=== PATIENT | male | born 1975 | race Caucasian/White ===

== ENCOUNTER 2019-09-27 13:37 | Inpatient (IN) | payer OTHER ==
[2019-09-27 16:56] VITALS: BMI 22.0
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
[2019-09-27] MEDS ORDERED: MAG HYDROX/AL HYDROX/SIMETH 30 ML UNIT-DOSE CUP PO PRN (19:36)
[2019-09-27] MEDS ORDERED: ACETAMINOPHEN 325 MG TABLET (FP) PO PRN (19:36)
[2019-09-27] MEDS ORDERED: MAGNESIUM CITRATE 300 ML BOTTLE PO PRN (19:36)
[2019-09-27] MEDS ORDERED: METHADONE HCL 10 MG TABLET (FOR DETOX USE ONLY) PO ONE (19:36)
[2019-09-27] MEDS ORDERED: NICOTINE POLACRILEX 2 MG GUM BUC PRN (19:36)
[2019-09-27] MEDS ORDERED: MENTHOL/PHENOL 1 EACH UD MM PRN (19:36)
[2019-09-27] MEDS ORDERED: BISMUTH SUBSALICYLATE 524 MG/30 ML UD PO PRN (19:36)
[2019-09-27] MEDS ORDERED: MAGNESIUM HYDROX 2400MG/30ML ORAL SUSPENSION 30 ML CUP PO PRN (19:36)
[2019-09-27] MEDS: MELATONIN 5 MG TABLETS PO SCH (22:23)
[2019-09-27] MEDS: THIAMINE HCL 100 MG TABLET (FP) PO SCH (22:23)
[2019-09-27] MEDS: cloNIDine HCL 0.1 MG TABLET PO PRN (22:23)
[2019-09-28] MEDS ORDERED: METHADONE HCL 5 MG TABLET (FOR DETOX USE ONLY) ONE (09:25)
[2019-09-28] MEDS ORDERED: METHADONE HCL 10 MG TABLET (FOR DETOX USE ONLY) ONE (09:26)
[2019-09-28] MEDS ORDERED: METHADONE (DETOX) 20 MG, METHADONE (DETOX) 5 MG PO ONE (10:00)
[2019-09-28] MEDS: NICOTINE 14 MG/24 HOURS TOPICAL PATCH TD SCH (10:09)
[2019-09-28] MEDS: PRENATAL VITAMINS W/ FOLIC ACID TABLET (FP) PO SCH (10:09)
--- NOTE | 2019-09-28 11:38 | PN ---
BHS COWS - Scale Resting Pulse: 0= [place] 80 or Below Sweatin= No chills or Flushing Restless Observation: 1= Difficult to Sit Still Pupil Size: 1= Pupils >than Normal Bone or Joint Aches: 2= Severe Diffuse Aches Runny Nose/ Eye Tearin= Runny Nose/Eyes GI Upset > 30mins: 2= Nausea/Diarrhea Tremor Observation of Outstretched Hands: 2= Slight Tremor Visible Yawning Observation: 1= 1-2x During Session Anxiety or Irritability: 2=Irritable/Anxious Goose Flesh Skin: 0=Smooth Skin COWS Score: 13 [facility] Progress Note (SOAP) Subjective: alert,irritable,anxious,interrupted sleep,tremor,pain in the body and back,nausea Objective: 09/28/19 11:36 Vital Signs Temperature 97.1 F L 09/28/19 05:08 Pulse Rate 53 L 09/28/19 05:08 Respiratory Rate 20 09/28/19 05:08 Blood Pressure 137/77 09/28/19 05:08 O2 Sat by Pulse Oximetry (%) 100 09/28/19 05:08 09/28/19 11:37 labs pending Assessment: 09/28/19 11:37 withdrawal symptom Plan: continue detox methadone regimen,valium 10 mgs po q 4 hrs prn for severe withdrawal
[2019-09-28 11:54] LABS: HEMATOCRIT 41.8 % (35.4-49); HEMOGLOBIN 13.5 GM/dL (11.7-16.9); MCH 28.1 pg (25.7-33.7); MCHC 32.3 g/dl (32.0-35.9); MEAN PLT VOLUME 9.7 fl (7.5-11.1); PLATELET COUNT 273 K/MM3 (134-434); RBC 4.81 M/mm3 (4.00-5.60); WHITE BLOOD COUNT 8.4 K/mm3 (4.0-10.0)
[2019-09-28 12:10] LABS: ALBUMIN 3.8 g/dl (3.4-5.0); BILIRUBIN,TOTAL 0.8 mg/dL (0.2-1); BLOOD UREA NITROGEN 8.1 mg/dL (7-18); CALCIUM 9.4 mg/dL (8.5-10.1); CREATININE 0.9 mg/dL (0.55-1.3)
--- NOTE | 2019-09-28 14:56 | EKG ---
Test Reason : Blood Pressure : / mmHG Vent. Rate : 045 BPM Atrial Rate : 045 BPM P-R Int : 110 ms QRS Dur : 090 ms QT Int : 454 ms P-R-T Axes : 072 049 052 degrees QTc Int : 392 ms SINUS BRADYCARDIA WITH SHORT [place] MODERATE VOLTAGE CRITERIA FOR LVH, MAY BE NORMAL VARIANT BORDERLINE ECG NO PREVIOUS ECGS AVAILABLE Confirmed by KELLI RAMESH MD ([id number]) on 09/28/2019 2:56:06 PM Referred By: Confirmed By:KELLI RAMESH MD
[2019-09-28] MEDS: cloNIDine HCL 0.1 MG TABLET PO PRN (18:44)
[2019-09-28] MEDS: diazePAM 5 MG TABLET PO PRN (22:28)
[2019-09-28] MEDS: THIAMINE HCL 100 MG TABLET (FP) PO SCH (22:28)
[2019-09-28] MEDS: MELATONIN 5 MG TABLETS PO SCH (22:29)
[2019-09-29] MEDS ORDERED: METHADONE HCL 10 MG TABLET (FOR DETOX USE ONLY) PO ONE (10:00)
[2019-09-29] MEDS: PRENATAL VITAMINS W/ FOLIC ACID TABLET (FP) PO SCH (11:09)
[2019-09-29] MEDS: NICOTINE 14 MG/24 HOURS TOPICAL PATCH TD SCH (11:09)
--- NOTE | 2019-09-29 11:53 | PN ---
S COWS - Scale Resting Pulse: 0= [place] 80 or Below Sweatin= No chills or Flushing Restless Observation: 0= Sits Still Pupil Size: 1= Pupils >than Normal Bone or Joint Aches: 2= Severe Diffuse Aches Runny Nose/ Eye Tearin= Nasal Congestion GI Upset > 30mins: 2= Nausea/Diarrhea Tremor Observation of Outstretched Hands: 2= Slight Tremor Visible Yawning Observation: 1= 1-2x During Session Anxiety or Irritability: 2=Irritable/Anxious Goose Flesh Skin: 0=Smooth Skin COWS Score: 11 S Progress Note (SOAP) Subjective: alert,irritable,anxious,interrupted sleep,tremor,pain in the body,back,nausea Objective: 09/29/19 11:51 Vital Signs Temperature 97.9 F 09/29/19 08:39 Pulse Rate 65 09/29/19 08:39 Respiratory Rate 18 09/29/19 08:39 Blood Pressure 135/78 09/29/19 08:39 O2 Sat by Pulse Oximetry (%) 100 09/29/19 08:39 09/29/19 11:52 Vital Signs Temperature 97.9 F 09/29/19 08:39 Pulse Rate 65 09/29/19 08:39 Respiratory Rate 18 09/29/19 08:39 Blood Pressure 135/78 09/29/19 08:39 O2 Sat by Pulse Oximetry (%) 100 09/29/19 08:39 Laboratory Last Values WBC 8.4 K/mm3 (4.0-10.0) 09/28/19 08:05 RBC 4.81 M/mm3 (4.00-5.60) 09/28/19 08:05 Hgb 13.5 GM/dL (11.7-16.9) 09/28/19 08:05 Hct 41.8 % (35.4-49) 09/28/19 08:05 MCV 87.0 fl (80-96) 09/28/19 08:05 MCH 28.1 pg (25.7-33.7) 09/28/19 08:05 MCHC 32.3 g/dl (32.0-35.9) 09/28/19 08:05 RDW 14.0 % (11.9-15.9) 09/28/19 08:05 Plt Count 273 K/MM3 (134-434) 09/28/19 08:05 MPV 9.7 fl (7.5-11.1) 09/28/19 08:05 Sodium 141 mmol/L (136-145) 09/28/19 08:05 Potassium 4.0 mmol/L (3.5-5.1) 09/28/19 08:05 Chloride 105 mmol/L (98-107) 09/28/19 08:05 Carbon Dioxide 29 mmol/L (21-32) 09/28/19 08:05 Anion Gap 8 MMOL/L (8-16) 09/28/19 08:05 BUN 8.1 mg/dL (7-18) 09/28/19 08:05 Creatinine 0.9 mg/dL (0.55-1.3) 09/28/19 08:05 Est GFR (CKD-EPI)AfAm 119.13 09/28/19 08:05 Est GFR (CKD-EPI)NonAf 102.79 09/28/19 08:05 Random Glucose 96 mg/dL (74-106) 09/28/19 08:05 Calcium 9.4 mg/dL (8.5-10.1) 09/28/19 08:05 Total Bilirubin 0.8 mg/dL (0.2-1) 09/28/19 08:05 AST 20 U/L (15-37) 09/28/19 08:05 ALT 36 U/L (13-61) 09/28/19 08:05 Alkaline Phosphatase 59 U/L (45-117) 09/28/19 08:05 Total Protein 7.0 g/dl (6.4-8.2) 09/28/19 08:05 Albumin 3.8 g/dl (3.4-5.0) 09/28/19 08:05 Syphilis Serology Non-reactive (NONREACTIVE) 09/28/19 08:05 COVID-19 ([facility]) Not detected (Not Detected) 09/27/19 17:40 Assessment: 09/29/19 11:52 withdrawal symptom Plan: continue detox methadone regimen,valium 10 mgs po q 4 hrs prn for severe withdrawal
[2019-09-29] MEDS: IBUPROFEN 400 MG TABLET (FP) PO PRN ×2 (13:00→22:01)
[2019-09-29] MEDS: METHOCARBAMOL 500 MG TABLET PO PRN (13:00)
[2019-09-29] MEDS: cloNIDine HCL 0.1 MG TABLET PO PRN (14:32)
[2019-09-29] MEDS: THIAMINE HCL 100 MG TABLET (FP) PO SCH (22:01)
[2019-09-29] MEDS: MELATONIN 5 MG TABLETS PO SCH (22:01)
[2019-09-29] MEDS: diazePAM 5 MG TABLET PO PRN (22:01)
[2019-09-30] MEDS ORDERED: METHADONE HCL 5 MG TABLET (FOR DETOX USE ONLY) ONE (09:51)
[2019-09-30] MEDS ORDERED: METHADONE HCL 10 MG TABLET (FOR DETOX USE ONLY) ONE (09:52)
[2019-09-30] MEDS ORDERED: METHADONE (DETOX) 10 MG, METHADONE (DETOX) 5 MG PO ONE (10:00)
[2019-09-30] MEDS: PRENATAL VITAMINS W/ FOLIC ACID TABLET (FP) PO SCH (10:19)
[2019-09-30] MEDS: NICOTINE 14 MG/24 HOURS TOPICAL PATCH TD SCH (10:19)
[2019-09-30] MEDS: METHOCARBAMOL 500 MG TABLET PO PRN (10:19)
--- NOTE | 2019-09-30 10:33 | PN ---
BHS COWS - Scale Resting Pulse: 0= [place] 80 or Below Sweatin= Beads of Sweat on Face Restless Observation: 1= Difficult to Sit Still Pupil Size: 0= Normal to Room Light Bone or Joint Aches: 2= Severe Diffuse Aches Runny Nose/ Eye Tearin= None GI Upset > 30mins: 0= None Tremor Observation of Outstretched Hands: 0= None Yawning Observation: 1= 1-2x During Session Anxiety or Irritability: 2=Irritable/Anxious Goose Flesh Skin: 0=Smooth Skin COWS Score: 9 S Progress Note (SOAP) Subjective: c/o muscle aches, anxiety, and irritability. Objective: 09/30/19 10:36 Vital Signs 09/30/19 05:40 Temperature 97.5 F L Pulse Rate 50 L Respiratory 16 Rate Blood Pressure 139/76 O2 Sat by Pulse 100 Oximetry (%) Laboratory Last Values WBC 8.4 K/mm3 (4.0-10.0) 09/28/19 08:05 RBC 4.81 M/mm3 (4.00-5.60) 09/28/19 08:05 Hgb 13.5 GM/dL (11.7-16.9) 09/28/19 08:05 Hct 41.8 % (35.4-49) 09/28/19 08:05 MCV 87.0 fl (80-96) 09/28/19 08:05 MCH 28.1 pg (25.7-33.7) 09/28/19 08:05 MCHC 32.3 g/dl (32.0-35.9) 09/28/19 08:05 RDW 14.0 % (11.9-15.9) 09/28/19 08:05 Plt Count 273 K/MM3 (134-434) 09/28/19 08:05 MPV 9.7 fl (7.5-11.1) 09/28/19 08:05 Sodium 141 mmol/L (136-145) 09/28/19 08:05 Potassium 4.0 mmol/L (3.5-5.1) 09/28/19 08:05 Chloride 105 mmol/L (98-107) 09/28/19 08:05 Carbon Dioxide 29 mmol/L (21-32) 09/28/19 08:05 Anion Gap 8 MMOL/L (8-16) 09/28/19 08:05 BUN 8.1 mg/dL (7-18) 09/28/19 08:05 Creatinine 0.9 mg/dL (0.55-1.3) 09/28/19 08:05 Est GFR (CKD-EPI)AfAm 119.13 09/28/19 08:05 Est GFR (CKD-EPI)NonAf 102.79 09/28/19 08:05 Random Glucose 96 mg/dL (74-106) 09/28/19 08:05 Calcium 9.4 mg/dL (8.5-10.1) 09/28/19 08:05 Total Bilirubin 0.8 mg/dL (0.2-1) 09/28/19 08:05 AST 20 U/L (15-37) 09/28/19 08:05 ALT 36 U/L (13-61) 09/28/19 08:05 Alkaline Phosphatase 59 U/L (45-117) 09/28/19 08:05 Total Protein 7.0 g/dl (6.4-8.2) 09/28/19 08:05 Albumin 3.8 g/dl (3.4-5.0) 09/28/19 08:05 Syphilis Serology Non-reactive (NONREACTIVE) 09/28/19 08:05 COVID-19 ([facility]) Not detected (Not Detected) 09/27/19 17:40 Labs noted. Assessment: 09/30/19 10:37 AOX3 and in no acute respiratory distress. Full ROM, ambulating in the unit. Withdrawal symptoms. Plan: continue detox.
[2019-09-30] MEDS: THIAMINE HCL 100 MG TABLET (FP) PO SCH (21:39)
[2019-09-30] MEDS: diazePAM 5 MG TABLET PO PRN (21:39)
[2019-09-30] MEDS: MELATONIN 5 MG TABLETS PO SCH (21:39)
[2019-09-30] MEDS: ACETAMINOPHEN 325 MG TABLET (FP) PO PRN (21:39)
[2019-10-01] MEDS ORDERED: METHADONE HCL 10 MG TABLET (FOR DETOX USE ONLY) PO ONE (10:00)
[2019-10-01] MEDS: METHOCARBAMOL 500 MG TABLET PO PRN ×2 (10:41→19:22)
[2019-10-01] MEDS: PRENATAL VITAMINS W/ FOLIC ACID TABLET (FP) PO SCH (10:41)
[2019-10-01] MEDS: NICOTINE 14 MG/24 HOURS TOPICAL PATCH TD SCH (10:42)
--- NOTE | 2019-10-01 10:57 | PN ---
BHS COWS - Scale Resting Pulse: 0= [place] 80 or Below Sweatin= Chills/Flushing Restless Observation: 1= Difficult to Sit Still Pupil Size: 0= Normal to Room Light Bone or Joint Aches: 2= Severe Diffuse Aches Runny Nose/ Eye Tearin= None GI Upset > 30mins: 0= None Tremor Observation of Outstretched Hands: 0= None Yawning Observation: 0= None Anxiety or Irritability: 2=Irritable/Anxious Goose Flesh Skin: 0=Smooth Skin COWS Score: 6 BHS Progress Note (SOAP) Subjective: PATIENT ADMITTED FOR OPIOD WITHDRAWAL SX. ROS: +ANXIETY/RESTLESSNESS AND CHILLS. PATIENT C/O LUMP TO RIGHT SIDE OF NECK. HE DENIES SOB, CHEST PAIN AND HEADACHES. PATIENT STATES HE DEVELOPED THE LUMP AT RIGHT SIDE OF NECK AFTER INJECTING HEROIN IN HIS JUGULAR VEIN. NOW STATES LUMP HAS GOTTEN BIGGER. Objective: 10/01/19 10:57 Vital Signs Temperature 97.1 F L 10/01/19 08:55 Pulse Rate 72 10/01/19 08:55 Respiratory Rate 16 10/01/19 08:55 Blood Pressure 148/74 10/01/19 08:55 O2 Sat by Pulse Oximetry (%) 100 10/01/19 08:55 Laboratory Tests 09/27/19 09/28/19 09/28/19 17:40 08:05 08:05 WBC 8.4 RBC 4.81 Hgb 13.5 Hct 41.8 MCV 87.0 MCH 28.1 MCHC 32.3 RDW 14.0 Plt Count 273 MPV 9.7 Sodium Potassium Chloride Carbon Dioxide Anion Gap BUN Creatinine Est GFR (CKD-EPI)AfAm Est GFR (CKD-EPI)NonAf Random Glucose Calcium Total Bilirubin AST ALT Alkaline Phosphatase Total Protein Albumin Syphilis Serology Non-reactive COVID-19 ([facility]) Not detected 09/28/19 08:05 WBC RBC Hgb Hct MCV MCH MCHC RDW Plt Count MPV Sodium 141 Potassium 4.0 Chloride 105 Carbon Dioxide 29 Anion Gap 8 BUN 8.1 Creatinine 0.9 Est GFR (CKD-EPI)AfAm 119.13 Est GFR (CKD-EPI)NonAf 102.79 Random Glucose 96 Calcium 9.4 Total Bilirubin 0.8 AST 20 ALT 36 Alkaline Phosphatase 59 Total Protein 7.0 Albumin 3.8 Syphilis Serology COVID-19 ([facility]) PE ALERT AND ORIENTED X 3 SKIN WARM, MILD FACIAL FLUSHING NECK SUPPLE, +ABSCESS TO RIGHT SIDE OF NECK, APPROXIMATELY 1 IN X I IN, OVAL SHAPE ,MILD REDNESS NOTED CAR S1S2 RESP CTA BL EXT FULL ROM AMB AD GRETA NO TREMORS Assessment: 10/01/19 11:02 OPIOD WITHDRAWAL SX ABSCESS Plan: CONTINUE DETOX START BACTRIM DS 1 TAB BID X 7 DAYS CLINDAMYCIN 150MG PO EVERY 6 HR X 7 DAYS MONITOR CLINICALLY, IF ABSCESS INCREASES IN SIZE, CONSIDER TRANSFER TO ED
[2019-10-01] MEDS: CLINDAMYCIN HCL 150 MG CAPSULE (FP) PO SCH ×3 (12:39→23:08)
[2019-10-01] MEDS: ACETAMINOPHEN 325 MG TABLET (FP) PO PRN (12:39)
[2019-10-01] MEDS: IBUPROFEN 400 MG TABLET (FP) PO PRN (19:22)
[2019-10-01] MEDS: THIAMINE HCL 100 MG TABLET (FP) PO SCH (22:06)
[2019-10-01] MEDS: SULFAMETHOXAZOLE/TRIMETHOPRIM 800MG/160MG D.S. TABLET PO SCH (22:06)
[2019-10-01] MEDS: MELATONIN 5 MG TABLETS PO SCH (22:06)
[2019-10-02] MEDS: CLINDAMYCIN HCL 150 MG CAPSULE (FP) PO SCH (05:42)
[2019-10-02] MEDS ORDERED: METHADONE HCL 5 MG TABLET (FOR DETOX USE ONLY) PO ONE (06:00)
[2019-10-02 06:06] VITALS: TEMP 97.1
[2019-10-02] MEDS: IBUPROFEN 400 MG TABLET (FP) PO PRN (07:24)
[2019-10-02] MEDS: SULFAMETHOXAZOLE/TRIMETHOPRIM 800MG/160MG D.S. TABLET PO SCH (09:22)
[2019-10-02] MEDS ORDERED: ASPIRIN 81 MG CHEWABLE TABLETS PO SCH (10:00)
[2019-10-02 10:21] VITALS: BP 138/87; PULSE 91
--- NOTE | 2019-10-02 10:29 | PN ---
BHS COWS - Scale Resting Pulse: 1= [place] 81-100 Sweatin= No chills or Flushing Restless Observation: 0= Sits Still Pupil Size: 0= Normal to Room Light Bone or Joint Aches: 0= None Runny Nose/ Eye Tearin= None GI Upset > 30mins: 0= None Tremor Observation of Outstretched Hands: 0= None Yawning Observation: 0= None Anxiety or Irritability: 1=Feels Anxious/Irritable Goose Flesh Skin: 0=Smooth Skin COWS Score: 2 BHS Progress Note (SOAP) Subjective: alert,no complaint Objective: 10/02/19 10:31 Vital Signs Temperature 97.1 F L 10/02/19 09:08 Pulse Rate 91 H 10/02/19 09:08 Respiratory Rate 18 10/02/19 09:08 Blood Pressure 138/87 10/02/19 09:08 O2 Sat by Pulse Oximetry (%) 100 10/02/19 05:32 Assessment: 10/02/19 10:32 detox completed,no withdrawal lump on right side of neck at the site of heroin injection,no fluctuation,no tenderness,no erythema,no difficulty in breathing,no difficulty on swallowing Plan: stable for discharge today,follow up with medical provider and out patient program as arrangement
--- NOTE | 2019-10-02 10:42 | DS ---
[facility] Detox Discharge Summary Admission Date: 09/27/19 Discharge Date: 10/02/19 - History Present History: Opioid Dependence Additional Comments: alert,oriented x 3 ambulation on the unit lung clear on auscultation bilaterally abdomen soft,no distension,no pain,no tenderness no swelling of the leg patient is stable for discharge,no withdrawal symptom follow up with own medical provider for follow up for mass of right neck r/o abscess and own psychiatrist prescription of bactrim ds and clindamycin sent to his pharmacy patient declined rehab will follow up with his own outpatient program total time of discharge 35 minutes Pertinent Past History: hiv hepatitis c depression ptsd - Physical Exam Results Vital Signs: Vital Signs Temperature 97.1 F L 10/02/19 09:08 Pulse Rate 91 H 10/02/19 09:08 Respiratory Rate 18 10/02/19 09:08 Blood Pressure 138/87 10/02/19 09:08 O2 Sat by Pulse Oximetry (%) 100 10/02/19 05:32 Pertinent Admission Physical Exam Findings: withdrawal signs and symptom Laboratory Last Values WBC 8.4 K/mm3 (4.0-10.0) 09/28/19 08:05 RBC 4.81 M/mm3 (4.00-5.60) 09/28/19 08:05 Hgb 13.5 GM/dL (11.7-16.9) 09/28/19 08:05 Hct 41.8 % (35.4-49) 09/28/19 08:05 MCV 87.0 fl (80-96) 09/28/19 08:05 MCH 28.1 pg (25.7-33.7) 09/28/19 08:05 MCHC 32.3 g/dl (32.0-35.9) 09/28/19 08:05 RDW 14.0 % (11.9-15.9) 09/28/19 08:05 Plt Count 273 K/MM3 (134-434) 09/28/19 08:05 MPV 9.7 fl (7.5-11.1) 09/28/19 08:05 Sodium 141 mmol/L (136-145) 09/28/19 08:05 Potassium 4.0 mmol/L (3.5-5.1) 09/28/19 08:05 Chloride 105 mmol/L (98-107) 09/28/19 08:05 Carbon Dioxide 29 mmol/L (21-32) 09/28/19 08:05 Anion Gap 8 MMOL/L (8-16) 09/28/19 08:05 BUN 8.1 mg/dL (7-18) 09/28/19 08:05 Creatinine 0.9 mg/dL (0.55-1.3) 09/28/19 08:05 Est GFR (CKD-EPI)AfAm 119.13 09/28/19 08:05 Est GFR (CKD-EPI)NonAf 102.79 09/28/19 08:05 Random Glucose 96 mg/dL (74-106) 09/28/19 08:05 Calcium 9.4 mg/dL (8.5-10.1) 09/28/19 08:05 Total Bilirubin 0.8 mg/dL (0.2-1) 09/28/19 08:05 AST 20 U/L (15-37) 09/28/19 08:05 ALT 36 U/L (13-61) 09/28/19 08:05 Alkaline Phosphatase 59 U/L (45-117) 09/28/19 08:05 Total Protein 7.0 g/dl (6.4-8.2) 09/28/19 08:05 Albumin 3.8 g/dl (3.4-5.0) 09/28/19 08:05 Syphilis Serology Non-reactive (NONREACTIVE) 09/28/19 08:05 COVID-19 ([facility]) Not detected (Not Detected) 09/27/19 17:40 Vital Signs Temperature 97.1 F L 10/02/19 09:08 Pulse Rate 91 H 10/02/19 09:08 Respiratory Rate 18 10/02/19 09:08 Blood Pressure 138/87 10/02/19 09:08 O2 Sat by Pulse Oximetry (%) 100 10/02/19 05:32 - Treatment Hospital Course: Detox Protocol Followed, Detoxed Safely, Responded well, Discharged Condition Good, Rehab Referral Accepted Patient has Accepted a Rehab Referral to: declined - Medication Discharge Medications: Ambulatory Orders Aspirin [ASA -] 81 mg PO DAILY 09/27/19 Escitalopram Oxalate [Lexapro -] 10 mg PO DAILY 09/27/19 Naproxen [Naprosyn -] 500 mg PO BID 09/27/19 Topiramate [Topamax] 25 mg PO BID 09/27/19 traZODone HCL [Trazodone HCl] 50 mg PO HS 09/27/19 - Diagnosis (1) Opioid dependence with withdrawal Current Visit: Yes Status: Acute (2) HIV (human immunodeficiency virus infection) Current Visit: Yes Status: Chronic Qualifiers: HIV symptom status: unspecified Qualified Code(s): B20 - Human immunodeficiency virus [HIV] disease (3) Hepatitis C Current Visit: Yes Status: Chronic Qualifiers: Viral hepatitis chronicity: unspecified (4) Nicotine dependence Current Visit: Yes Status: Chronic Qualifiers: Substance use status: uncomplicated (5) Depression Current Visit: Yes Status: Chronic Qualifiers: Depression Type: unspecified Qualified Code(s): F32.9 - Major depressive disorder, single episode, unspecified (6) PTSD (post-traumatic stress disorder) Current Visit: Yes Status: Chronic - AMA Did Patient Leave Against Medical Advice: No
[2019-10-02] MEDS ORDERED: CLINDAMYCIN HCL 150 MG CAPSULE (FP) PO SCH (12:00)
== END 2019-10-02 09:27 | disposition home or self-care (01) | DRG 897 ==
LOC: YASAS 13:37 → Y6N 19:22
PROVIDERS: ADMIT Allergy & Immunology; ATTEND Allergy & Immunology
PROC: HZ2ZZZZ Detoxification Services for Substance Abuse Treatment (ICD-10-PCS; principal; 2019-09-27)
DX: F11.23 Opioid dependence with withdrawal (principal); L02.11 Cutaneous abscess of neck; F17.210 Nicotine dependence, cigarettes, uncomplicated; F32.9 Major depressive disorder, single episode, unspecified; F43.10 Post-traumatic stress disorder, unspecified; Z21 Asymptomatic human immunodeficiency virus [HIV] infection status; B18.2 Chronic viral hepatitis C; R00.1 Bradycardia, unspecified
CPT/HCPCS: 36415; 80053; 85027; 86780; 93005; 93010; J0735; U0003